=== PATIENT | male | born 1965 | race Caucasian/White ===

== ENCOUNTER 2023-07-30 11:47 | Inpatient (IN) | payer OTHER ==
[2023-07-30 13:27] VITALS: BMI 21.4
[2023-07-30] MEDS ORDERED: POLYETHYLENE GLYCOL (HEALTHYLAX) 3350 17 GM PACKET PO PRN (17:39)
[2023-07-30] MEDS ORDERED: IBUPROFEN 600 MG TABLET (FP) PO PRN (17:39)
[2023-07-30] MEDS ORDERED: BISMUTH SUBSALICYLATE 524 MG/30 ML PO PRN (17:39)
[2023-07-30] MEDS ORDERED: ACETAMINOPHEN 325 MG TABLET (FP) PO PRN (17:39)
[2023-07-30] MEDS ORDERED: ONDANSETRON *ODT* 4 MG TABLET SL PRN (17:39)
[2023-07-30] MEDS ORDERED: IBUPROFEN 400 MG TABLET (FP) PO PRN (17:39)
[2023-07-30] MEDS ORDERED: NALOXONE HCL 0.4 MG/ML VIAL IM PRN (17:39)
[2023-07-30] MEDS ORDERED: LOPERAMIDE HCL 2 MG CAPSULE PO PRN (17:39)
[2023-07-30] MEDS ORDERED: MAGNESIUM HYDROX 2400MG/30ML ORAL SUSPENSION 30 ML CUP PO PRN (17:39)
[2023-07-30] MEDS ORDERED: NALOXONE HCL (KLOXXADO) 8 MG SPRAY NS PRN (17:39)
[2023-07-30] MEDS ORDERED: DICYCLOMINE HCL 10 MG CAPSULE PO PRN (17:39)
[2023-07-30] MEDS ORDERED: BENZOCAINE/MENTHOL (CHLORASEPTIC ) LOZENGE MM PRN (17:39)
[2023-07-30] MEDS ORDERED: MAG HYDROX/AL HYDROX/SIMETH 30 ML UNIT-DOSE CUP PO PRN (17:39)
[2023-07-30] MEDS ORDERED: BENZONATATE 200 MG CAPSULE PO PRN (17:39)
[2023-07-30] MEDS ORDERED: guaiFENesin 600 MG TABLET.ER (FP) PO PRN (17:39)
[2023-07-30] MEDS ORDERED: cloNIDine HCL 0.1 MG TABLET ONE (17:41)
[2023-07-30] MEDS: cloNIDine HCL 0.1 MG TABLET PO PRN (17:44)
[2023-07-30] MEDS: MELATONIN 5 MG TABLETS PO SCH (22:56)
[2023-07-30] MEDS: THIAMINE HCL 100 MG TABLET (FP) PO SCH (22:56)
[2023-07-31] MEDS ORDERED: diazePAM 5 MG TABLET PO PRN (09:18)
[2023-07-31 09:47] LABS: CHLORIDE 102 mmol/L (98-107); POTASSIUM 3.3 mmol/L (3.5-5.1); SODIUM 139 mmol/L (136-145)
[2023-07-31 09:53] LABS: ALBUMIN 2.9 g/dl (3.4-5.0); CALCIUM 8.4 mg/dL (8.5-10.1)
[2023-07-31 09:54] LABS: ANION GAP 7 mmol/L (4-13); BLOOD UREA NITROGEN 8.3 mg/dL (7-18); CO2 30 mmol/L (21-32); GLUCOSE,RANDOM 258 mg/dL (74-106)
[2023-07-31 09:55] LABS: HEMATOCRIT 35.7 % (35.4-49); HEMOGLOBIN 12.6 GM/dL (11.7-16.9); MCH 30.9 pg (25.7-33.7); MCHC 35.4 g/dl (32.0-35.9); MEAN CELL VOLUME 87.2 fl (80-96); MEAN PLT VOLUME 8.8 fl (7.5-11.1); PLATELET COUNT 244 10^3/uL (134-434); RBC 4.09 M/mm3 (4.00-5.60); RDW 12.3 % (11.9-15.9)
[2023-07-31 09:56] LABS: CREATININE 0.7 mg/dL (0.55-1.3); SGOT/AST 9 U/L (15-37)
[2023-07-31 09:57] LABS: SGPT/ALT 14 U/L (13-61)
[2023-07-31 09:58] LABS: TOT PROT 5.6 g/dl (6.4-8.2)
[2023-07-31 09:59] LABS: ALK PHOS 87 U/L (45-117)
[2023-07-31] MEDS: PRENATAL VITAMINS W/ FOLIC ACID TABLET (FP) PO SCH (10:17)
[2023-07-31] MEDS: diazePAM 5 MG TABLET PO SCH ×3 (10:20→22:35)
[2023-07-31] MEDS ORDERED: POTASSIUM CHLORIDE ORAL LIQUID 20 MEQ/15 ML PO ONE (11:08)
[2023-07-31] MEDS: cloNIDine HCL 0.1 MG TABLET PO PRN (15:03)
[2023-07-31] MEDS: amLODIPine BESYLATE 10 MG TABLET (FP) PO SCH (17:48)
[2023-07-31] MEDS: MELATONIN 5 MG TABLETS PO SCH (22:34)
[2023-07-31] MEDS: THIAMINE HCL 100 MG TABLET (FP) PO SCH (22:34)
[2023-07-31] MEDS: hydrOXYzine PAMOATE 25 MG CAPSULE (FP) PO PRN (22:35)
[2023-07-31] MEDS: QUEtiapine FUMARATE 25 MG TABLET PO SCH (22:35)
[2023-08-01] MEDS: diazePAM 5 MG TABLET PO SCH ×4 (05:48→22:21)
[2023-08-01] MEDS: amLODIPine BESYLATE 10 MG TABLET (FP) PO SCH (10:14)
[2023-08-01] MEDS: PRENATAL VITAMINS W/ FOLIC ACID TABLET (FP) PO SCH (10:14)
[2023-08-01] MEDS: cloNIDine HCL 0.1 MG TABLET PO PRN (13:11)
[2023-08-01] MEDS: LOSARTAN 50MG/HCTZ 12.5MG 1 TAB PO SCH (14:41)
[2023-08-01] MEDS ORDERED: cloNIDine HCL 0.1 MG TABLET PO ONE (15:33)
[2023-08-01] MEDS: MELATONIN 5 MG TABLETS PO SCH (22:21)
[2023-08-01] MEDS: THIAMINE HCL 100 MG TABLET (FP) PO SCH (22:21)
[2023-08-01] MEDS: METHOCARBAMOL 500 MG TABLET PO PRN (22:21)
[2023-08-01] MEDS: QUEtiapine FUMARATE 25 MG TABLET PO SCH (22:22)
[2023-08-02] MEDS: diazePAM 5 MG TABLET PO SCH ×3 (05:38→22:28)
[2023-08-02] MEDS: hydrOXYzine PAMOATE 25 MG CAPSULE (FP) PO PRN (07:11)
[2023-08-02] MEDS: METHOCARBAMOL 500 MG TABLET PO PRN (07:11)
[2023-08-02] MEDS: HYDROCHLOROTHIAZIDE 25 MG TABLET (FP) PO SCH (10:30)
[2023-08-02] MEDS: PRENATAL VITAMINS W/ FOLIC ACID TABLET (FP) PO SCH (10:30)
[2023-08-02] MEDS: amLODIPine BESYLATE 10 MG TABLET (FP) PO SCH (10:30)
[2023-08-02] MEDS: LOSARTAN 50MG/HCTZ 12.5MG 1 TAB PO SCH (10:31)
[2023-08-02 13:18] LABS: POTASSIUM 3.7 mmol/L (3.5-5.1)
[2023-08-02 13:27] LABS: CALCIUM 8.7 mg/dL (8.5-10.1)
[2023-08-02 13:28] LABS: BLOOD UREA NITROGEN 10.4 mg/dL (7-18)
[2023-08-02 13:32] LABS: CREATININE 0.9 mg/dL (0.55-1.3)
[2023-08-02] MEDS: INSULIN SLIDING SCALE (NOVOLOG) 1 VIAL SQ SCH ×2 (18:35→21:50)
[2023-08-02] MEDS: QUEtiapine FUMARATE 25 MG TABLET PO SCH (22:28)
[2023-08-02] MEDS: MELATONIN 5 MG TABLETS PO SCH (22:28)
[2023-08-02] MEDS: THIAMINE HCL 100 MG TABLET (FP) PO SCH (22:28)
[2023-08-03] MEDS: diazePAM 5 MG TABLET PO SCH ×2 (06:17→17:04)
[2023-08-03] MEDS: INSULIN SLIDING SCALE (NOVOLOG) 1 VIAL SQ SCH ×4 (06:30→21:41)
[2023-08-03] MEDS: PRENATAL VITAMINS W/ FOLIC ACID TABLET (FP) PO SCH (10:18)
[2023-08-03] MEDS: HYDROCHLOROTHIAZIDE 25 MG TABLET (FP) PO SCH (10:19)
[2023-08-03] MEDS: amLODIPine BESYLATE 10 MG TABLET (FP) PO SCH (10:19)
[2023-08-03] MEDS: LOSARTAN 50MG/HCTZ 12.5MG 1 TAB PO SCH (11:00)
[2023-08-03] MEDS: THIAMINE HCL 100 MG TABLET (FP) PO SCH (21:41)
[2023-08-03] MEDS: QUEtiapine FUMARATE 25 MG TABLET PO SCH (21:41)
[2023-08-03] MEDS: MELATONIN 5 MG TABLETS PO SCH (21:41)
[2023-08-04] MEDS ORDERED: diazePAM 5 MG TABLET PO ONE (06:00)
[2023-08-04] MEDS: INSULIN SLIDING SCALE (NOVOLOG) 1 VIAL SQ SCH ×2 (06:32→11:53)
[2023-08-04 09:59] VITALS: PULSE 89; RESP 16
[2023-08-04] MEDS: LOSARTAN 50MG/HCTZ 12.5MG 1 TAB PO SCH (10:36)
[2023-08-04] MEDS: HYDROCHLOROTHIAZIDE 25 MG TABLET (FP) PO SCH (10:36)
[2023-08-04] MEDS: amLODIPine BESYLATE 10 MG TABLET (FP) PO SCH (10:36)
[2023-08-04] MEDS: PRENATAL VITAMINS W/ FOLIC ACID TABLET (FP) PO SCH (10:36)
[2023-08-04 13:26] VITALS: BP 177/89; TEMP 97.7
== END 2023-08-04 13:15 | disposition other institution (70) | DRG 775 ==
LOC: YASAS 11:47 → Y3N 17:27
PROVIDERS: ADMIT Allergy & Immunology; ATTEND Surgery
PROC: HZ2ZZZZ Detoxification Services for Substance Abuse Treatment (ICD-10-PCS; principal; 2023-07-30)
DX: F10.230 Alcohol dependence with withdrawal, uncomplicated (principal); F12.20 Cannabis dependence, uncomplicated; F10.282 Alcohol dependence with alcohol-induced sleep disorder; F43.10 Post-traumatic stress disorder, unspecified; E87.6 Hypokalemia; I10 Essential (primary) hypertension; R73.9 Hyperglycemia, unspecified; Z87.891 Personal history of nicotine dependence; Z86.59 Personal history of other mental and behavioral disorders; Z89.512 Acquired absence of left leg below knee; Z99.89 Dependence on other enabling machines and devices
CPT/HCPCS: 36415; 80048; 80053; 80307; 82947; 82962; 83036; 85027; 86780; 87635

== ENCOUNTER 2023-08-04 13:21 | Inpatient (IN) | payer OTHER ==
[2023-08-04] MEDS ORDERED: NICOTINE POLACRILEX 2 MG GUM BUC PRN (15:39)
[2023-08-04] MEDS ORDERED: IBUPROFEN 400 MG TABLET (FP) PO PRN (15:39)
[2023-08-04] MEDS ORDERED: POLYETHYLENE GLYCOL (HEALTHYLAX) 3350 17 GM PACKET PO PRN (15:39)
[2023-08-04] MEDS ORDERED: METHOCARBAMOL 500 MG TABLET PO PRN (15:39)
[2023-08-04] MEDS ORDERED: BENZOCAINE/MENTHOL (CHLORASEPTIC ) LOZENGE MM PRN (15:39)
[2023-08-04] MEDS ORDERED: NALOXONE HCL (KLOXXADO) 8 MG SPRAY NS PRN (15:39)
[2023-08-04] MEDS ORDERED: MAG HYDROX/AL HYDROX/SIMETH 30 ML UNIT-DOSE CUP PO PRN (15:39)
[2023-08-04] MEDS ORDERED: COLLOIDAL OATMEAL 1 BAR EACH TP PRN (15:39)
[2023-08-04] MEDS ORDERED: LOPERAMIDE HCL 2 MG CAPSULE PO PRN (15:39)
[2023-08-04] MEDS ORDERED: BENZONATATE 200 MG CAPSULE PO PRN (15:39)
[2023-08-04] MEDS ORDERED: ACETAMINOPHEN 325 MG TABLET (FP) PO PRN (15:39)
[2023-08-04] MEDS ORDERED: NICOTINE 14 MG/24 HOURS TOPICAL PATCH TD PRN (15:39)
[2023-08-04] MEDS ORDERED: NALOXONE HCL 0.4 MG/ML VIAL IVPUSH PRN (15:39)
[2023-08-04] MEDS ORDERED: AMMONIUM LACTATE 12% LOTION 225 GM BOTTLE TP PRN (15:39)
[2023-08-04] MEDS ORDERED: MAGNESIUM HYDROX 2400MG/30ML ORAL SUSPENSION 30 ML CUP PO PRN (15:39)
[2023-08-04] MEDS ORDERED: guaiFENesin 600 MG TABLET.ER (FP) PO PRN (15:39)
[2023-08-04] MEDS ORDERED: INSULIN ASPART SLIDING SCALE (NOVOLOG) 1 VIAL SQ SCH (16:30)
[2023-08-04] MEDS: THIAMINE HCL 100 MG TABLET (FP) PO SCH (21:21)
[2023-08-04] MEDS: INSULIN ASPART SLIDING SCALE (NOVOLOG) 1 VIAL SQ SCH ×2 (21:21→21:29)
[2023-08-04] MEDS: MELATONIN 5 MG TABLETS PO SCH (21:21)
[2023-08-04] MEDS: QUEtiapine FUMARATE 25 MG TABLET PO SCH (21:28)
[2023-08-05] MEDS: INSULIN ASPART SLIDING SCALE (NOVOLOG) 1 VIAL SQ SCH ×4 (06:36→21:34)
[2023-08-05] MEDS: PRENATAL VITAMINS W/ FOLIC ACID TABLET (FP) PO SCH (09:57)
[2023-08-05] MEDS: HYDROCHLOROTHIAZIDE 25 MG TABLET (FP) PO SCH (09:58)
[2023-08-05] MEDS: MELATONIN 5 MG TABLETS PO SCH (21:32)
[2023-08-05] MEDS: THIAMINE HCL 100 MG TABLET (FP) PO SCH (21:32)
[2023-08-05] MEDS: QUEtiapine FUMARATE 25 MG TABLET PO SCH (21:32)
[2023-08-06] MEDS: INSULIN ASPART SLIDING SCALE (NOVOLOG) 1 VIAL SQ SCH ×4 (06:55→21:17)
[2023-08-06] MEDS: HYDROCHLOROTHIAZIDE 25 MG TABLET (FP) PO SCH (11:13)
[2023-08-06] MEDS: PRENATAL VITAMINS W/ FOLIC ACID TABLET (FP) PO SCH (11:13)
[2023-08-06] MEDS: MELATONIN 5 MG TABLETS PO SCH (21:14)
[2023-08-06] MEDS: THIAMINE HCL 100 MG TABLET (FP) PO SCH (21:14)
[2023-08-06] MEDS: IBUPROFEN 600 MG TABLET (FP) PO PRN (21:16)
[2023-08-06] MEDS: QUEtiapine FUMARATE 25 MG TABLET PO SCH (21:21)
[2023-08-07] MEDS: hydrOXYzine PAMOATE 25 MG CAPSULE (FP) PO PRN (06:11)
[2023-08-07] MEDS: INSULIN ASPART SLIDING SCALE (NOVOLOG) 1 VIAL SQ SCH ×5 (07:26→21:35)
[2023-08-07] MEDS: HYDROCHLOROTHIAZIDE 25 MG TABLET (FP) PO SCH (09:54)
[2023-08-07] MEDS: PRENATAL VITAMINS W/ FOLIC ACID TABLET (FP) PO SCH (09:54)
[2023-08-07] MEDS: THIAMINE HCL 100 MG TABLET (FP) PO SCH (21:32)
[2023-08-07] MEDS: QUEtiapine FUMARATE 25 MG TABLET PO SCH (21:32)
[2023-08-07] MEDS: MELATONIN 5 MG TABLETS PO SCH (21:32)
[2023-08-08] MEDS: INSULIN ASPART SLIDING SCALE (NOVOLOG) 1 VIAL SQ SCH ×4 (06:15→21:04)
[2023-08-08] MEDS: hydrOXYzine PAMOATE 25 MG CAPSULE (FP) PO PRN (06:16)
[2023-08-08] MEDS: HYDROCHLOROTHIAZIDE 25 MG TABLET (FP) PO SCH (10:07)
[2023-08-08] MEDS: amLODIPine BESYLATE 2.5 MG TABLET (FP) PO SCH (10:07)
[2023-08-08] MEDS: PRENATAL VITAMINS W/ FOLIC ACID TABLET (FP) PO SCH (10:07)
[2023-08-08] MEDS: QUEtiapine FUMARATE 50 MG TABLET PO SCH (21:00)
[2023-08-08] MEDS: MELATONIN 5 MG TABLETS PO SCH (21:00)
[2023-08-08] MEDS: THIAMINE HCL 100 MG TABLET (FP) PO SCH (21:01)
[2023-08-09] MEDS: hydrOXYzine PAMOATE 25 MG CAPSULE (FP) PO PRN (06:05)
[2023-08-09] MEDS: INSULIN ASPART SLIDING SCALE (NOVOLOG) 1 VIAL SQ SCH ×4 (07:00→21:01)
[2023-08-09] MEDS: amLODIPine BESYLATE 2.5 MG TABLET (FP) PO SCH (09:38)
[2023-08-09] MEDS: PRENATAL VITAMINS W/ FOLIC ACID TABLET (FP) PO SCH (09:38)
[2023-08-09] MEDS: HYDROCHLOROTHIAZIDE 25 MG TABLET (FP) PO SCH (09:38)
[2023-08-09] MEDS ORDERED: amLODIPine BESYLATE 2.5 MG TABLET (FP) PO SCH (10:19)
[2023-08-09] MEDS ORDERED: amLODIPine BESYLATE 2.5 MG TABLET (FP) PO ONE (10:21)
[2023-08-09] MEDS: THIAMINE HCL 100 MG TABLET (FP) PO SCH (21:00)
[2023-08-09] MEDS: MELATONIN 5 MG TABLETS PO SCH (21:00)
[2023-08-09] MEDS: QUEtiapine FUMARATE 50 MG TABLET PO SCH (21:01)
[2023-08-10] MEDS: INSULIN ASPART SLIDING SCALE (NOVOLOG) 1 VIAL SQ SCH ×4 (06:23→21:20)
[2023-08-10] MEDS: amLODIPine BESYLATE 5 MG TABLET (FP) PO SCH (09:59)
[2023-08-10] MEDS: PRENATAL VITAMINS W/ FOLIC ACID TABLET (FP) PO SCH (09:59)
[2023-08-10] MEDS: HYDROCHLOROTHIAZIDE 25 MG TABLET (FP) PO SCH (09:59)
[2023-08-10] MEDS: MELATONIN 5 MG TABLETS PO SCH (21:20)
[2023-08-10] MEDS: QUEtiapine FUMARATE 50 MG TABLET PO SCH (21:20)
[2023-08-10] MEDS: THIAMINE HCL 100 MG TABLET (FP) PO SCH (21:20)
[2023-08-11] MEDS: INSULIN ASPART SLIDING SCALE (NOVOLOG) 1 VIAL SQ SCH ×4 (06:32→21:00)
[2023-08-11] MEDS: amLODIPine BESYLATE 5 MG TABLET (FP) PO SCH (09:34)
[2023-08-11] MEDS: HYDROCHLOROTHIAZIDE 25 MG TABLET (FP) PO SCH (09:34)
[2023-08-11] MEDS: PRENATAL VITAMINS W/ FOLIC ACID TABLET (FP) PO SCH (09:34)
[2023-08-11] MEDS ORDERED: INSULIN ASPART SLIDING SCALE (NOVOLOG) 1 VIAL SQ ONE (11:46)
[2023-08-11] MEDS: QUEtiapine FUMARATE 50 MG TABLET PO SCH (21:00)
[2023-08-11] MEDS: MELATONIN 5 MG TABLETS PO SCH (21:00)
[2023-08-11] MEDS: THIAMINE HCL 100 MG TABLET (FP) PO SCH (21:41)
[2023-08-12] MEDS: INSULIN ASPART SLIDING SCALE (NOVOLOG) 1 VIAL SQ SCH ×4 (06:31→21:07)
[2023-08-12] MEDS: PRENATAL VITAMINS W/ FOLIC ACID TABLET (FP) PO SCH (10:23)
[2023-08-12] MEDS: HYDROCHLOROTHIAZIDE 25 MG TABLET (FP) PO SCH (10:23)
[2023-08-12] MEDS: amLODIPine BESYLATE 5 MG TABLET (FP) PO SCH (10:24)
[2023-08-12] MEDS: MELATONIN 5 MG TABLETS PO SCH (21:06)
[2023-08-12] MEDS: THIAMINE HCL 100 MG TABLET (FP) PO SCH (21:06)
[2023-08-12] MEDS: QUEtiapine FUMARATE 50 MG TABLET PO SCH (21:06)
[2023-08-13] MEDS: INSULIN ASPART SLIDING SCALE (NOVOLOG) 1 VIAL SQ SCH ×4 (06:14→21:24)
[2023-08-13] MEDS: PRENATAL VITAMINS W/ FOLIC ACID TABLET (FP) PO SCH (09:31)
[2023-08-13] MEDS: amLODIPine BESYLATE 10 MG TABLET (FP) PO SCH (09:32)
[2023-08-13] MEDS: HYDROCHLOROTHIAZIDE 25 MG TABLET (FP) PO SCH (09:32)
[2023-08-13] MEDS: MELATONIN 5 MG TABLETS PO SCH (21:23)
[2023-08-13] MEDS: THIAMINE HCL 100 MG TABLET (FP) PO SCH (21:23)
[2023-08-13] MEDS: QUEtiapine FUMARATE 50 MG TABLET PO SCH (21:23)
[2023-08-14] MEDS: INSULIN ASPART SLIDING SCALE (NOVOLOG) 1 VIAL SQ SCH ×4 (06:19→21:05)
[2023-08-14] MEDS: PRENATAL VITAMINS W/ FOLIC ACID TABLET (FP) PO SCH (10:22)
[2023-08-14] MEDS: amLODIPine BESYLATE 10 MG TABLET (FP) PO SCH (10:22)
[2023-08-14] MEDS: HYDROCHLOROTHIAZIDE 25 MG TABLET (FP) PO SCH (10:22)
[2023-08-14] MEDS: QUEtiapine FUMARATE 50 MG TABLET PO SCH (21:05)
[2023-08-14] MEDS: MELATONIN 5 MG TABLETS PO SCH (21:05)
[2023-08-14] MEDS: THIAMINE HCL 100 MG TABLET (FP) PO SCH (21:05)
[2023-08-15] MEDS: INSULIN ASPART SLIDING SCALE (NOVOLOG) 1 VIAL SQ SCH ×4 (06:47→21:31)
[2023-08-15] MEDS: PRENATAL VITAMINS W/ FOLIC ACID TABLET (FP) PO SCH (09:34)
[2023-08-15] MEDS: amLODIPine BESYLATE 10 MG TABLET (FP) PO SCH (09:34)
[2023-08-15] MEDS: HYDROCHLOROTHIAZIDE 25 MG TABLET (FP) PO SCH (09:34)
[2023-08-15] MEDS: QUEtiapine FUMARATE 50 MG TABLET PO SCH (21:29)
[2023-08-15] MEDS: MELATONIN 5 MG TABLETS PO SCH (21:29)
[2023-08-15] MEDS: THIAMINE HCL 100 MG TABLET (FP) PO SCH (21:29)
[2023-08-15] MEDS: IBUPROFEN 600 MG TABLET (FP) PO PRN (21:29)
[2023-08-16] MEDS: INSULIN ASPART SLIDING SCALE (NOVOLOG) 1 VIAL SQ SCH ×4 (06:25→21:02)
[2023-08-16] MEDS: amLODIPine BESYLATE 10 MG TABLET (FP) PO SCH (10:03)
[2023-08-16] MEDS: HYDROCHLOROTHIAZIDE 25 MG TABLET (FP) PO SCH (10:03)
[2023-08-16] MEDS: PRENATAL VITAMINS W/ FOLIC ACID TABLET (FP) PO SCH (10:03)
[2023-08-16] MEDS: MELATONIN 5 MG TABLETS PO SCH (21:02)
[2023-08-16] MEDS: THIAMINE HCL 100 MG TABLET (FP) PO SCH (21:02)
[2023-08-16] MEDS: QUEtiapine FUMARATE 50 MG TABLET PO SCH (21:02)
[2023-08-17] MEDS: INSULIN ASPART SLIDING SCALE (NOVOLOG) 1 VIAL SQ SCH ×4 (06:23→21:00)
[2023-08-17] MEDS: PRENATAL VITAMINS W/ FOLIC ACID TABLET (FP) PO SCH (09:43)
[2023-08-17] MEDS: amLODIPine BESYLATE 10 MG TABLET (FP) PO SCH (09:43)
[2023-08-17] MEDS: HYDROCHLOROTHIAZIDE 25 MG TABLET (FP) PO SCH (09:43)
[2023-08-17] MEDS ORDERED: INSULIN ASPART SLIDING SCALE (NOVOLOG) 1 VIAL SQ ONE (11:42)
[2023-08-17 12:18] LABS: POTASSIUM 4.1 mmol/L (3.5-5.1)
[2023-08-17 12:21] LABS: CALCIUM 9.3 mg/dL (8.5-10.1)
[2023-08-17 12:22] LABS: ALBUMIN 3.4 g/dl (3.4-5.0); BLOOD UREA NITROGEN 15.7 mg/dL (7-18)
[2023-08-17 12:25] LABS: CREATININE 0.7 mg/dL (0.55-1.3)
[2023-08-17 12:26] LABS: BILIRUBIN,TOTAL 0.7 mg/dL (0.2-1); TOT PROT 6.5 g/dl (6.4-8.2)
[2023-08-17] MEDS: QUEtiapine FUMARATE 50 MG TABLET PO SCH (21:00)
[2023-08-17] MEDS: MELATONIN 5 MG TABLETS PO SCH (21:00)
[2023-08-17] MEDS: THIAMINE HCL 100 MG TABLET (FP) PO SCH (21:00)
[2023-08-18] MEDS: INSULIN ASPART SLIDING SCALE (NOVOLOG) 1 VIAL SQ SCH ×4 (06:10→21:26)
[2023-08-18] MEDS: amLODIPine BESYLATE 10 MG TABLET (FP) PO SCH (10:10)
[2023-08-18] MEDS: HYDROCHLOROTHIAZIDE 25 MG TABLET (FP) PO SCH (10:10)
[2023-08-18] MEDS: PRENATAL VITAMINS W/ FOLIC ACID TABLET (FP) PO SCH (10:10)
[2023-08-18] MEDS: MELATONIN 5 MG TABLETS PO SCH (21:26)
[2023-08-18] MEDS: QUEtiapine FUMARATE 50 MG TABLET PO SCH (21:26)
[2023-08-18] MEDS: THIAMINE HCL 100 MG TABLET (FP) PO SCH (21:26)
[2023-08-19] MEDS: INSULIN ASPART SLIDING SCALE (NOVOLOG) 1 VIAL SQ SCH ×4 (06:07→21:07)
[2023-08-19] MEDS: amLODIPine BESYLATE 10 MG TABLET (FP) PO SCH (09:40)
[2023-08-19] MEDS: PRENATAL VITAMINS W/ FOLIC ACID TABLET (FP) PO SCH (09:40)
[2023-08-19] MEDS: HYDROCHLOROTHIAZIDE 25 MG TABLET (FP) PO SCH (09:41)
[2023-08-19] MEDS: QUEtiapine FUMARATE 50 MG TABLET PO SCH (21:07)
[2023-08-19] MEDS: THIAMINE HCL 100 MG TABLET (FP) PO SCH (21:07)
[2023-08-19] MEDS: MELATONIN 5 MG TABLETS PO SCH (21:07)
[2023-08-20] MEDS: INSULIN ASPART SLIDING SCALE (NOVOLOG) 1 VIAL SQ SCH ×4 (06:31→20:59)
[2023-08-20] MEDS: PRENATAL VITAMINS W/ FOLIC ACID TABLET (FP) PO SCH (09:39)
[2023-08-20] MEDS: HYDROCHLOROTHIAZIDE 25 MG TABLET (FP) PO SCH (09:39)
[2023-08-20] MEDS: amLODIPine BESYLATE 10 MG TABLET (FP) PO SCH (09:40)
[2023-08-20] MEDS: THIAMINE HCL 100 MG TABLET (FP) PO SCH (21:00)
[2023-08-20] MEDS: MELATONIN 5 MG TABLETS PO SCH (21:01)
[2023-08-20] MEDS: QUEtiapine FUMARATE 50 MG TABLET PO SCH (21:01)
[2023-08-21] MEDS: INSULIN ASPART SLIDING SCALE (NOVOLOG) 1 VIAL SQ SCH ×4 (06:18→20:59)
[2023-08-21] MEDS: PRENATAL VITAMINS W/ FOLIC ACID TABLET (FP) PO SCH (09:44)
[2023-08-21] MEDS: HYDROCHLOROTHIAZIDE 25 MG TABLET (FP) PO SCH (09:45)
[2023-08-21] MEDS: amLODIPine BESYLATE 10 MG TABLET (FP) PO SCH (09:45)
[2023-08-21] MEDS: QUEtiapine FUMARATE 50 MG TABLET PO SCH (21:00)
[2023-08-21] MEDS: THIAMINE HCL 100 MG TABLET (FP) PO SCH (21:01)
[2023-08-21] MEDS: MELATONIN 5 MG TABLETS PO SCH (21:01)
[2023-08-22] MEDS: INSULIN ASPART SLIDING SCALE (NOVOLOG) 1 VIAL SQ SCH ×4 (06:17→21:15)
[2023-08-22] MEDS: HYDROCHLOROTHIAZIDE 25 MG TABLET (FP) PO SCH (09:52)
[2023-08-22] MEDS: PRENATAL VITAMINS W/ FOLIC ACID TABLET (FP) PO SCH (09:52)
[2023-08-22] MEDS: amLODIPine BESYLATE 10 MG TABLET (FP) PO SCH (09:52)
[2023-08-22] MEDS: MELATONIN 5 MG TABLETS PO SCH (21:15)
[2023-08-22] MEDS: THIAMINE HCL 100 MG TABLET (FP) PO SCH (21:15)
[2023-08-22] MEDS: QUEtiapine FUMARATE 50 MG TABLET PO SCH (21:15)
[2023-08-23] MEDS: INSULIN ASPART SLIDING SCALE (NOVOLOG) 1 VIAL SQ SCH ×4 (06:14→21:28)
[2023-08-23] MEDS: HYDROCHLOROTHIAZIDE 25 MG TABLET (FP) PO SCH (09:29)
[2023-08-23] MEDS: amLODIPine BESYLATE 10 MG TABLET (FP) PO SCH (09:29)
[2023-08-23] MEDS: PRENATAL VITAMINS W/ FOLIC ACID TABLET (FP) PO SCH (09:29)
[2023-08-23] MEDS: IBUPROFEN 600 MG TABLET (FP) PO PRN (15:39)
[2023-08-23] MEDS: MELATONIN 5 MG TABLETS PO SCH (21:28)
[2023-08-23] MEDS: THIAMINE HCL 100 MG TABLET (FP) PO SCH (21:28)
[2023-08-23] MEDS: QUEtiapine FUMARATE 50 MG TABLET PO SCH (21:28)
[2023-08-24] MEDS: INSULIN ASPART SLIDING SCALE (NOVOLOG) 1 VIAL SQ SCH ×4 (06:43→21:31)
[2023-08-24] MEDS: HYDROCHLOROTHIAZIDE 25 MG TABLET (FP) PO SCH (10:23)
[2023-08-24] MEDS: PRENATAL VITAMINS W/ FOLIC ACID TABLET (FP) PO SCH (10:23)
[2023-08-24] MEDS: amLODIPine BESYLATE 10 MG TABLET (FP) PO SCH (10:23)
[2023-08-24] MEDS ORDERED: INSULIN ASPART SLIDING SCALE (NOVOLOG) 1 VIAL SQ ONE (11:35)
[2023-08-24] MEDS: THIAMINE HCL 100 MG TABLET (FP) PO SCH (21:31)
[2023-08-24] MEDS: QUEtiapine FUMARATE 50 MG TABLET PO SCH (21:31)
[2023-08-24] MEDS: MELATONIN 5 MG TABLETS PO SCH (21:31)
[2023-08-25] MEDS: INSULIN ASPART SLIDING SCALE (NOVOLOG) 1 VIAL SQ SCH ×4 (06:06→21:14)
[2023-08-25] MEDS: PRENATAL VITAMINS W/ FOLIC ACID TABLET (FP) PO SCH (09:32)
[2023-08-25] MEDS: HYDROCHLOROTHIAZIDE 25 MG TABLET (FP) PO SCH (09:32)
[2023-08-25] MEDS: amLODIPine BESYLATE 10 MG TABLET (FP) PO SCH (09:32)
[2023-08-25] MEDS: IBUPROFEN 600 MG TABLET (FP) PO PRN ×2 (09:33→21:13)
[2023-08-25] MEDS: QUEtiapine FUMARATE 50 MG TABLET PO SCH (21:12)
[2023-08-25] MEDS: THIAMINE HCL 100 MG TABLET (FP) PO SCH (21:12)
[2023-08-25] MEDS: MELATONIN 5 MG TABLETS PO SCH (21:12)
[2023-08-26] MEDS: INSULIN ASPART SLIDING SCALE (NOVOLOG) 1 VIAL SQ SCH ×4 (06:01→21:07)
[2023-08-26] MEDS: PRENATAL VITAMINS W/ FOLIC ACID TABLET (FP) PO SCH (09:54)
[2023-08-26] MEDS: amLODIPine BESYLATE 10 MG TABLET (FP) PO SCH (09:54)
[2023-08-26] MEDS: HYDROCHLOROTHIAZIDE 25 MG TABLET (FP) PO SCH (09:54)
[2023-08-26] MEDS: QUEtiapine FUMARATE 50 MG TABLET PO SCH (21:06)
[2023-08-26] MEDS: MELATONIN 5 MG TABLETS PO SCH (21:06)
[2023-08-26] MEDS: THIAMINE HCL 100 MG TABLET (FP) PO SCH (21:06)
[2023-08-27] MEDS: INSULIN ASPART SLIDING SCALE (NOVOLOG) 1 VIAL SQ SCH ×4 (06:13→21:43)
[2023-08-27] MEDS: amLODIPine BESYLATE 10 MG TABLET (FP) PO SCH (09:42)
[2023-08-27] MEDS: HYDROCHLOROTHIAZIDE 25 MG TABLET (FP) PO SCH (09:42)
[2023-08-27] MEDS: PRENATAL VITAMINS W/ FOLIC ACID TABLET (FP) PO SCH (09:42)
[2023-08-27] MEDS: MELATONIN 5 MG TABLETS PO SCH (21:42)
[2023-08-27] MEDS: QUEtiapine FUMARATE 50 MG TABLET PO SCH (21:43)
[2023-08-27] MEDS: THIAMINE HCL 100 MG TABLET (FP) PO SCH (21:43)
[2023-08-28] MEDS: INSULIN ASPART SLIDING SCALE (NOVOLOG) 1 VIAL SQ SCH ×4 (06:04→21:07)
[2023-08-28] MEDS: PRENATAL VITAMINS W/ FOLIC ACID TABLET (FP) PO SCH (10:46)
[2023-08-28] MEDS: HYDROCHLOROTHIAZIDE 25 MG TABLET (FP) PO SCH (10:46)
[2023-08-28] MEDS: amLODIPine BESYLATE 10 MG TABLET (FP) PO SCH (10:47)
[2023-08-28] MEDS: THIAMINE HCL 100 MG TABLET (FP) PO SCH (21:06)
[2023-08-28] MEDS: QUEtiapine FUMARATE 50 MG TABLET PO SCH (21:06)
[2023-08-28] MEDS: MELATONIN 5 MG TABLETS PO SCH (21:06)
[2023-08-29] MEDS: INSULIN ASPART SLIDING SCALE (NOVOLOG) 1 VIAL SQ SCH ×4 (06:33→21:21)
[2023-08-29 08:41] VITALS: RESP 18
[2023-08-29] MEDS: PRENATAL VITAMINS W/ FOLIC ACID TABLET (FP) PO SCH (09:38)
[2023-08-29] MEDS: amLODIPine BESYLATE 10 MG TABLET (FP) PO SCH (09:38)
[2023-08-29] MEDS: HYDROCHLOROTHIAZIDE 25 MG TABLET (FP) PO SCH (09:38)
[2023-08-29] MEDS ORDERED: TRIAMTERENE AND HCTZ - 37.5 MG/25 MG CAPSULE PO SCH (10:15)
[2023-08-29] MEDS: MELATONIN 5 MG TABLETS PO SCH (21:20)
[2023-08-29] MEDS: THIAMINE HCL 100 MG TABLET (FP) PO SCH (21:20)
[2023-08-29] MEDS: QUEtiapine FUMARATE 50 MG TABLET PO SCH (21:21)
[2023-08-30] MEDS: INSULIN ASPART SLIDING SCALE (NOVOLOG) 1 VIAL SQ SCH ×4 (06:30→21:10)
[2023-08-30] MEDS ORDERED: TRIAMTERENE AND HCTZ - 37.5 MG/25 MG CAPSULE PO SCH (10:00)
[2023-08-30] MEDS: PRENATAL VITAMINS W/ FOLIC ACID TABLET (FP) PO SCH (10:18)
[2023-08-30] MEDS: amLODIPine BESYLATE 10 MG TABLET (FP) PO SCH (10:18)
[2023-08-30] MEDS: THIAMINE HCL 100 MG TABLET (FP) PO SCH (21:10)
[2023-08-30] MEDS: MELATONIN 5 MG TABLETS PO SCH (21:10)
[2023-08-30] MEDS: QUEtiapine FUMARATE 50 MG TABLET PO SCH (21:10)
[2023-08-31] MEDS: INSULIN ASPART SLIDING SCALE (NOVOLOG) 1 VIAL SQ SCH ×4 (06:26→21:20)
[2023-08-31] MEDS: amLODIPine BESYLATE 10 MG TABLET (FP) PO SCH (09:54)
[2023-08-31] MEDS: TRIAMTERENE AND HCTZ - 37.5 MG/25 MG CAPSULE PO SCH (09:54)
[2023-08-31] MEDS: PRENATAL VITAMINS W/ FOLIC ACID TABLET (FP) PO SCH (09:54)
[2023-08-31] MEDS: QUEtiapine FUMARATE 50 MG TABLET PO SCH (21:20)
[2023-08-31] MEDS: MELATONIN 5 MG TABLETS PO SCH (21:20)
[2023-08-31] MEDS: THIAMINE HCL 100 MG TABLET (FP) PO SCH (21:20)
[2023-09-01 06:23] VITALS: PULSE 81; TEMP 97.7
[2023-09-01] MEDS: INSULIN ASPART SLIDING SCALE (NOVOLOG) 1 VIAL SQ SCH (06:23)
[2023-09-01 08:37] VITALS: BP 155/87
[2023-09-01] MEDS: TRIAMTERENE AND HCTZ - 37.5 MG/25 MG CAPSULE PO SCH (09:23)
[2023-09-01] MEDS: PRENATAL VITAMINS W/ FOLIC ACID TABLET (FP) PO SCH (09:23)
[2023-09-01] MEDS: amLODIPine BESYLATE 10 MG TABLET (FP) PO SCH (09:23)
== END 2023-09-01 09:30 | disposition home or self-care (01) | DRG 772 ==
LOC: YASAS 13:21 → Y3W 13:23
PROVIDERS: ADMIT Allergy & Immunology; ATTEND Psychiatry & Neurology Pain Medicine
PROC: HZ42ZZZ Group Counseling for Substance Abuse Treatment, Cognitive-Behavioral (ICD-10-PCS; principal; 2023-08-04)
DX: F10.20 Alcohol dependence, uncomplicated (principal); F12.20 Cannabis dependence, uncomplicated; F32.A Depression, unspecified; G47.00 Insomnia, unspecified; I10 Essential (primary) hypertension; E11.9 Type 2 diabetes mellitus without complications; Z79.4 Long term (current) use of insulin; Z89.512 Acquired absence of left leg below knee; Z86.59 Personal history of other mental and behavioral disorders; Z87.891 Personal history of nicotine dependence
CPT/HCPCS: 36415; 80053; 82140; 82962; 86803